=== PATIENT | female | born 1975 | race Caucasian/White ===

== ENCOUNTER 2024-05-23 12:08 | Observation (INO) | payer OTHER, SELFPAY ==
[2024-05-23] VITALS (12 sets, daily range): BP systolic 120–155; BP diastolic 72–107; PULSE 70–113; RESP 16; TEMP 36.3–36.8; O2SAT 96–100; BMI 34.7; BMI 35.5; BMI 34.6
--- NOTE | 2024-05-23 12:21 | CT_ITS ---
PROCEDURE: STROKE CTA HEAD AND NECK W/CON 05/23/2024 REASON FOR EXAM: NT Migraine headaches. TECHNIQUE: CTA imaging of the head and neck from the aortic arch to the skull vertex with out constrast and with intravenous contrast. Coronal and Sagittal reconstruction series were provided. 3D post processing with reformations, Maximum intensity projection (MIPs) Volume rendering and Shaded surface rendering was provided. CONTRAST: Isovue 370 VOLUME: 100 mL One or more dose reduction techniques were used (e.g., Automated exposure control, adjustment of the mA and/or kV according to patient size, use of iterative reconstruction technique). RADIATION DOSE SUMMARY: CTDlvol: 32 mGy DLP: 1624.83 mGycm COMPARISON: Comparison is made with prior CT scan of the brain done earlier in the day. FINDINGS: Aortic Arch: Normal size and branching pattern. No significant atherosclerotic plaque. Brachiocephalic and Subclavians: RIGHT Carotid: Right CCA: Unremarkable. Right ICA: Minimal calcific plaque at the origin of the right internal carotid artery. Maximum stenosis (NASCET): Less than 5 % Right ECA: Unremarkable. LEFT Carotid: Left CCA: Unremarkable. Left ICA: Unremarkable. Left ECA: Unremarkable. Vertebrals: Codominant. Arise from the subclavians. Both vertebrals form the basilar. RIGHT Vertebral: Unremarkable. LEFT Vertebral: Unremarkable. Anatomy: [place] anatomy is normal. Aneurysm or avm: No intracranial aneurysms or large vascular malformations are identified. Anterior cerebral arteries: Unremarkable: Middle cerebral arteries: Unremarkable. Basilar artery: Unremarkable. Posterior cerebral arteries: Unremarkable. Other major branches of the posterior circulation: Unremarkable. Major venous structures: Unremarkable. Other findings: Neck: No lymphadenopathy. Lungs: Bones: CT/STROKE CTA Head AND Neck W/Con IMPRESSION: Minimal plaque at the origin of the right internal carotid artery. Reading Location: [place] [id number]
--- NOTE | 2024-05-23 12:21 | CT_ITS ---
PROCEDURE: STROKE BRAIN/HEAD WITHOUT CONT 05/23/2024 REASON FOR EXAM: N/T Migraine headaches. TECHNIQUE: Head CT without intravenous contrast. Coronal and Sagittal reconstruction series were provided. One or more dose reduction techniques were used (e.g., Automated exposure control, adjustment of the mA and/or kV according to patient size, use of iterative reconstruction technique. RADIATION DOSE SUMMARY: CTDlvol: 5.7 mGy DLP: 5.7 mGycm COMPARISON: None FINDINGS: Brain: Normal CSF Spaces: Normal Sinuses/Mastoids: Clear at visualized levels Bones: Unremarkable CT/STROKE Brain/Head without Cont IMPRESSION: NORMAL NONCONTRAST HEAD CT. [facility]
--- NOTE | 2024-05-23 12:21 | EKG12_ITS ---
Test Reason : Blood Pressure : */* mmHG Vent. Rate : 77 BPM Atrial Rate : 77 BPM P-R Int : 134 ms QRS Dur : 100 ms QT Int : 372 ms P-R-T Axes : 58 60 36 degrees QTcB Int : 420 ms Normal sinus rhythm Normal ECG Confirmed by Ridge Daniel ([id number]), design editor ADALBERTO ULLOA ([id number]) on 05/26/2024 6:44:43 AM Referred By: Confirmed By: Ridge Daniel
--- NOTE | 2024-05-23 12:30 | RAD_ITS ---
PROCEDURE: CHEST PA AND LATERAL 05/23/2024 REASON FOR EXAM: STROKE TECHNIQUE: Frontal and lateral views of the chest. COMPARISON: None FINDINGS: Hardware: None Heart: The heart size is normal. Mediastinum: The mediastinal contour is stable. Lungs: The lungs are clear. Bones: Increased kyphosis. RAD/Chest PA and Lateral IMPRESSION: NO ACUTE FINDINGS. Reading Location: [facility]
--- NOTE | 2024-05-23 13:03 | EDS_ITS ---
HPI History of Present Illness Chief Complaint: Neuro S/Sx Detail of Chief Complaint: Strokelike symptoms with paresthesia, and difficulty finding words Informant: patient and spouse/S.O. Onset/Context/Timing Onset: Yesterday and Days Timing: Intermittent Quality and Location: Positive for Left Face Parasthesia, Left Arm Parasthesia (Left hand and left foot yesterday and today) and Expressive Aphasia; Negative for Right Facial Droop, Left Facial Droop, Right Face Paresthesia, Right Arm Parasthesia, Right Leg Parasthesia, Right Arm Weakness, Left Arm Weakness, Right Leg Weakness, Left Leg Weakness, Slurred Speech, Receptive Aphasia or Difficulty with Ambulation Onset: Trouble with speech 2 days ago. She states she had difficulty finding word Current Severity: Mild Maximum Severity: Moderate Worsened by: Nothing Relieved by: Not applicable Associated Symptoms Associated Symptoms: Positive for Headache (Headache x 2 weeks); Negative for Nausea, Vomiting or Chest Pain Narrative Narrative: Patient is a 49-year-old woman. She has history of idiopathic intracranial hypertension and migraine headaches. Patient discontinued her Atogpant because of loss of appetite and 15 pound weight loss. She is on Diamox for her idiopathic intracranial hypertension. She denies any visual symptoms. She states the other day she had troubles saying things even though she knew what it was she gave the example that she was telling her to give her a blanket because she was cold. Yesterday and today she had a seizure shape area of numbness left perioral area and numbness left side of her tongue. She also complained of numbness in her right hand and foot. Today onset was at 0900. She had a chronic headache. She has no other symptoms. She does not have hist ory of neurologic symptoms with her headaches. Patient reports her blood pressure was out of control. Her blood pressure was in the 140s yesterday and today. Prior similar symptoms: No Recent Illness/Hospitalization: No PFSH PFSH Home Medications ?Medication ?Instructions ?Recorded ?Last Taken ?Type omeprazole 40 mg capsule,delayed 40 mg PO TID PRN naus ea #90 caps 11/11/23 05/22/24 Rx release ondansetron 4 mg disintegrating 4 mg PO TID PRN nausea and 02/21/24 05/16/24 Rx tablet vomiting #30 tabs topiramate 50 mg tablet (Topamax) 50 mg PO DAILY #30 t abs 02/21/24 05/22/24 Rx ubrogepant 50 mg tablet (Ubrelvy) 50 mg PO DAILY PRN h eadache #16 03/09/24 Unknown Rx tabs atogepant 60 mg tablet (Qulipta) 60 mg PO DAILY #30 ta bs 04/03/24 Unknown Rx Held on 05/23/24. Instructions: MD Ordered acetazolamide 250 mg tablet 250 mg PO BID 05/23/24 History amlodipine 10 mg tablet 10 mg PO DAILY PRN blood pre ssure 05/23/24 05/23/24 History Allergy/AdvReac Type Severity Reaction Status Date / Time promethazine (From Phenergan) AdvReac Intermediate Other Verified 05/23/24 12:10 Social History (Updated 05/23/24 @ 13:[address] Rafita Burnett MD) household members: spouse Smoking Status: Never smoker ROS ROS ED Constitutional Constitutional ED: Denies chills, fever(s), subjective, sweats or weakness Eyes Eyes: Denies blurry vision, change in vision or diplopia ENT ENT ED: Denies ear pain or sore throat Cardiovascular Cardiovascular: Denies chest pain or palpitations Respiratory/Chest Respiratory/Chest: Denies cough, dyspnea or dyspnea on exertion Gastrointestinal Gastrointestinal: Denies abdominal pain, nausea or vomiting Musculoskeletal Musculoskeletal: Denies back pain or neck pain Integumentary Denies rash Neurologic Neurologic: Reports headache(s) and paresthesias; Denies weakness Hematologic/Lymphatic Hematologic/Lymphatic: Denies easy bleeding or easy bruising EXAM Physical Exam Const Vital Signs: 05/23/24 12:10 05/23/24 12:21 05/23/24 13:21 Temperature 98.3 F Temperature Source Oral Pulse Rate 113 H 103 H Respiratory Rate 16 16 Blood Pressure 155/103 H 142/107 H Blood Pressure Mean 120 118 Pulse Ox 99 97 96 Oxygen Delivery Method Room Air Room Air Room Air 05/23/24 13:25 05/23/24 13:30 Temperature Temperature Source Pulse Rate 91 72 Respiratory Rate 16 16 Blood Pressure 142/107 H 129/77 H Blood Pressure Mean 118 94 Pulse Ox 98 96 Oxygen Delivery Method Room Air Room Air Positive well nourished and well developed Constitutional Narrative: Blood pressure is elevated 155/103. Heart rate is 113. She appears in no distress. General Appearance ED: well developed HEENT Reports TM's clear and moist mucous membranes atraumatic Tympanic Membrane ED: Yes TM's clear Eyes EOMs intact bilaterally Eyes Narrative: There is no nystagmus. There is no visual field cut. General Eye ED: Negative for pale conjunctiva or scleral icterus Neck no lymphadenopathy, supple and no JVD Resp normal respiratory effort and clear to auscultation bilaterally Cardio no murmurs Rate: tachycardic Rhythm: regular rhythm Heart Sounds: S1 normal and S2 normal Back/Spine no CVA tenderness Extremity General Extremety ED: Negative for deformity or edema General Extremity: Negative for deformity or edema Neuro oriented x3, CN's II-XII intact bilaterally and No no sensory deficits noted Joey Coma Scale: document GCS findings Spontaneous Obeys Commands Oriented 15 Sensorium / Orientation: alert Motor Exam: strength 5/5 throughout Psych mental status grossly normal Skin no wounds General Skin Exam: Negative for jaundice Lesions: no lesions Rashes: no rashes MDM MDM MDM Narrative Medical decision making narrative: This may represent a complex migraine versus TIA due to microvascular disease. Patient's symptoms are minor and not a candidate for TNK or vascular intervention unless CTA reveals something. History & Record Review Discussion w/independent historian: Patient and Family Lab Data Attestation: I reviewed the patient's lab results. Lab results narrative: CBC is unremarkable. Labs: Laboratory Results - last 24 hr 05/23/24 13:28 WBC 7.4 RBC 5.03 Hgb 14.9 Hct 42.8 MCV 85.1 MCH 29.6 MCHC 34.8 RDW Std Deviation 38.6 RDW Coeff of Roma 12.6 Plt Count 238 MPV 9.5 Immature Gran % (Auto) 1.500 H Neut % (Auto) 65.9 Lymph % (Auto) 25.2 [place] % (Auto) 6.4 Eos % (Auto) 0.3 Baso % (Auto) 0.7 Absolute Neuts (auto) 4.9 Absolute Lymphs (auto) 1.86 Nucleated RBC % 0 PT Cancelled INR Cancelled APTT Cancelled Sodium 142 Potassium 3.7 Chloride 108 Carbon Dioxide 22.3 Anion Gap 11 BUN 14 Creatinine 0.92 Estim Creat Clear Calc 80.38 Est GFR (MDRD) Non-Af 75 BUN/Creatinine Ratio 14.7 Glucose 123 H Calcium 10.1 Radiography Chest X-Ray - ED: 1 View, Read by ED Physician, Normal, Heart, Lungs, Mediastinum, Bony Structures and No Acute Disease Diagnostic Testing: Clinical Impression(s) from Imaging Studies Brain CT 05/23/24 12:21 IMPRESSION: NORMAL NONCONTRAST HEAD CT. Reading Location: [facility] Chest X-Ray 05/23/24 12:30 IMPRESSION: NO ACUTE FINDINGS. Reading Location: [facility] CT revealed no acute findings. Will contact hospitalist for admission EKG Initial EKG: Attestation: I personally reviewed and interpreted this EKG as follows: Interpretation: Sinus Rhythm (Rate is 77. [place] interval is 134 ms. Cures duration is 100 ms. QT duration is 322 ms. Lindsay normal. EKG is normal.) Management Discussion w/another healthcare provider: Hospitalist (Dr. Torres was paged for admission for workup to determine if this is a CVA versus complex migraine versus other cause) and Radiologist (Informed of radiology read for unenhanced scan) Discharge Plan Dx/Rx/DC Orders Clinical Impression: Stroke-like symptoms, History of idiopathic intracranial hypertension, Headache, classical migraine, intractable, with status migrainosus, Elevated blood-pressure reading without diagnosis of hypertension, Sinus tachycardia seen on cardiac monitor technician Disposition Disposition: Acute Care Hospital [facility] NIHSS NIHSS 1a. Level of Consciousness: 0 - Alert; keenly responsive 1b. LOC Questions: 0 - Answers BOTH questions correctly 1c. LOC Commands: 0 - Performs BOTH tasks correctly 3. Visual: 0 - No visual loss 4. Facial Palsy: 0 - Normal symmetrical movements 5a. Left Arm: 0 - No drift; arm holds 90 (or 45) degrees for full 10 seconds 6a. Left Le - No drift; leg holds 30-degree position for full 5 seconds 6b. Right Le - No drift; leg holds 30-degree position for full 5 seconds 7. Limb Ataxia: 0 - Absent 8. Sensory: 1 - [id number]-[id number] sensory loss; 9. Best Language: 0 - No aphasia; normal 10. Dysarthria: 0 - Normal 11. Extinction and Inattention: 0 - No abnormality Total: 1
[2024-05-23] MEDS: 0.9% Normal Saline (1000mL) 1,000 ML 50 ML IV (13:37)
[2024-05-23 13:41] LABS: Absolute Lymphocyte Count 1.86 X10^3/uL (0.83-4.51); Absolute Neutrophil Count 4.9 X10^3/uL (2.0-7.7); Basophil# 0.05 X10^3/uL; Basophil% 0.7 % (0-1); Eosinophil# 0.02 X10^3/uL; Eosinophils% 0.3 % (0-5); Hematocrit 42.8 % (37-47); Hemoglobin 14.9 g/dL (12.0-15.0); Lymphocyte # 1.86 X10^3/ul (0.83-4.51); Lymphocyte % 25.2 % (19-41); Mean Corp Hgb Conc 34.8 g/dL (32-36); Mean Corpuscular Hgb 29.6 pg (27.0-32.0); Mean Corpuscular Volume 85.1 fL (81-99); Mean Platelet Vol. 9.5 fl (6.2-12.0); Monocyte# 0.47 X10^3/uL; Monocyte% 6.4 % (0-10); NRBC Flagged by Analyzer 0 % (0-5); Neutrophil # 4.87 X10^3/uL (2.7-7.7); Neutrophil % 65.9 % (47-70); Platelet Count 238 K/mm3 (150-450); RBC Distribution Width CV 12.6 % (11.6-14.6); RBC Distribution Width SD 38.6 fl (35.1-43.9); Red Blood Count 5.03 M/mm3 (4.2-5.4); White Blood Count 7.4 K/mm3 (4.4-11.0)
[2024-05-23 14:02] LABS: Anion Gap 11 (5-15); BUN 14 mg/dL (4-19); BUN/Creat Ratio 14.7 RATIO (10-20); Calcium,Total 10.1 mg/dL (7.6-11.0); Carbon Dioxide 22.3 mmol/L (21.0-32.0); Chloride 108 mmol/L (98-108); Creatinine, Serum 0.92 mg/dL (0.70-1.20); EST Glomerular Filtration Rate 75 (>60); Estimated Creatinine Clearance 80.38 ml/min (50-250); Glucose 123 mg/dL (70-99); Potassium 3.7 mmol/L (3.3-5.1); Sodium Level 142 mmol/L (133-145)
--- NOTE | 2024-05-23 14:52 | HP.PCM.HOS_ITS ---
HPI - General General Date of Admission: 05/23/24 Date of Service: 05/23/24 Chief Complaint: Headache, paresthesias. HPI Narrative The patient is a 49 y/o F w/ PMHx: Obesity, Idiopathic intracranial HTN/HTN, Diet controlled Diabetes mellitus type II, Chronic migraine headaches, GERD who presents to the [facility] ED on 05/23/24 with history of strokelike symptoms noted to be intermittent over the last 48 hours with left face paresthesias, left upper extremity paresthesias and the day prior noted to also be in the left hand and left foot as well as today in addition to expressive aphasia with also an episode with difficulty with speech 2 days prior even difficulty finding words which seem to of improved and then again she had recurrent symptoms as noted with persistent headache ongoing for the last 2 weeks reportedly discontinuing her atogpant secondary to decreased appetite and resulting weight loss of 15 pounds, compliant with her Diamox for her idiopathic intracranial hypertension but given recurrent symptoms again today onset at 9 AM and onset of neurological symptoms which she is never had previously with her headaches prompted eventual ED evaluation. In the ED upon evaluation she notes still a persistent headache that is nearly headband shape in the front of her head describing it as a squeezing constant 5-6 out of 10 in severity with no light or sound sensitivity with nausea but no emesis. She also notes that most of her symptoms have resolved and she is has no expressive aphasia and only very minimal paresthesias/tingling in her bilateral hand in a glove distribution as well as the left foot as if in a sock distribution in addition to a very mild region just on the vermilion border near around the left side of the mouth. 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 She has never had any headaches with neurological symptoms previously. Workup in the ED included T98.3, heart 113, BP 155/103, respiratory rate 16, 99% room air with most recent repeat vitals heart rate 72, BP 120/72, respiratory rate 16, 98% on room air, CBC with WBC 7.4, he 1 14.9, platelet 238 with increased immature granulocytes, pending coags upon request evaluation of patient, BMP with glucose 123, BUN/creatinine 14/0.92, GFR 75 with no comparison, CT of the brain with no acute intracranial findings, CTA head and neck with minimal plaque at the origin of the right ICA, chest x-ray with no acute findings, EKG with sinus rhythm with no acute evidence of ischemia. In the ED patient ministered maintenance IV fluids. [facility] Medical History HTN (hypertension) GERD (gastroesophageal reflux disease) Obesity Chronic migraine Benign intracranial hypertension Diabetes mellitus, type 2 Home Medications ?Medication ?Instructions ?Recorded ?Last Taken ?Type omeprazole 40 mg capsule,delayed 40 mg PO TID PRN naus ea #90 caps 11/11/23 05/22/24 Rx release ondansetron 4 mg disintegrating 4 mg PO TID PRN nausea and 02/21/24 05/16/24 Rx tablet vomiting #30 tabs topiramate 50 mg tablet (Topamax) 50 mg PO DAILY #30 t abs 02/21/24 05/22/24 Rx ubrogepant 50 mg tablet (Ubrelvy) 50 mg PO DAILY PRN h eadache #16 03/09/24 Unknown Rx tabs atogepant 60 mg tablet (Qulipta) 60 mg PO DAILY #30 ta bs 04/03/24 Unknown Rx Held on 05/23/24. Instructions: MD Ordered acetazolamide 250 mg tablet 250 mg PO BID 05/23/24 History amlodipine 10 mg tablet 10 mg PO DAILY PRN blood pre ssure 05/23/24 05/23/24 History Allergy/AdvReac Type Severity Reaction Status Date / Time promethazine (From Phenergan) AdvReac Intermediate Other Verified 05/23/24 12:10 Family History (Updated 05/23/24 @ 15:[address] Graciela Torres MD) Mother Crohn's disease Father CAD (coronary artery disease) s/p CABG Heart disease Hypertension Myocardial infarction Heart failure Surgical History History of arthroscopy of right knee History of bilateral breast reduction surgery History of cholecystectomy History of total abdominal hysterectomy and bilateral salpingo-oophorectomy Social History (Updated 05/23/24 @ 15:[address] Graciela Torres MD) household members: spouse Smoking Status: Never smoker alcohol intake: never substance use type: does not use ROS ROS Narrative Admission Review of Systems: CONSTITUTIONAL: No weight loss, fever, chills, weakness or fatigue. HEENT: + Headache, facial paresthesias. Eyes: No visual loss, blurred vision, double vision or yellow sclerae. Ears, Nose, Throat: No hearing loss, sneezing, congestion, runny nose or sore throat. SKIN: No rash or itching, lesions, wounds. CARDIOVASCULAR: No chest pain, chest pressure or chest discomfort, palpitations, edema, orthopnea, syncopal events. RESPIRATORY: No shortness of breath, cough or sputum, wheezing, hemoptysis. GASTROINTESTINAL: No anorexia, nausea, vomiting or diarrhea, abdominal pain, melena, BRBPR. GENITOURINARY: No dysuria, frequency, urgency or retention. NEUROLOGICAL: + Headache, facial paresthesias, hand as well as distal left foot paresthesias, expressive aphasia. Chronic migraines. No dizziness, syncope, paralysis, ataxia, focal weakness, change in bowel or bladder control, seizure. MUSCULOSKELETAL: + muscle, back pain, joint pain or stiffness. HEMATOLOGIC: No anemia, bleeding or bruising. LYMPHATICS: No enlarged nodes. No history of splenectomy. PSYCHIATRIC: No history of depression or anxiety. ENDOCRINOLOGIC: No reports of sweating, cold or heat intolerance. No polyuria or polydipsia. ALLERGIES: No history of asthma, hives, eczema or rhinitis. Vital Signs Vital Signs Vital Signs: 05/23/24 12:10 05/23/24 12:21 05/23/24 13:21 Temperature 98.3 F Temperature Source Oral Pulse Rate 113 H 103 H Respiratory Rate 16 16 Blood Pressure 155/103 H 142/107 H Blood Pressure Mean 120 118 Pulse Ox 99 97 96 Oxygen Delivery Method Room Air Room Air Room Air 05/23/24 13:25 05/23/24 13:30 05/23/24 14:33 Temperature Temperature Source Pulse Rate 91 72 Respiratory Rate 16 16 Blood Pressure 142/107 H 129/77 H 120/72 Blood Pressure Mean 118 94 88 Pulse Ox 98 96 98 Oxygen Delivery Method Room Air Room Air Weight Weight: 207 lb 0.225 oz Body Mass Index (BMI) 35.5 Physical Exam Narrative Physical Examination: General: Awake, alert, oriented x 3 and cooperative, seated upright in the ED bed in no apparent distress, notes improving. Skin: Normal color, normal turgor, no icterus, no cyanosis. HEENT: AT/NC, EOMI, PERRLA, MMM, still very residual left-sided paresthesias along the vermilion lip border only, no carotid bruits or JVD noted. Lungs: CTA bilaterally, moderate effort, mild decrease BL bases, no rales, ronchi or wheezing. Heart: Regular rate and rhythm; no gallop, rub audible. Abdomen: Soft, obese, NTTP, ND, mildly hyperactive BS, no appreciated HSM. Extremities: No cyanosis, clubbing, or edema. Neurological: Patient awake, alert, oriented as noted, cognitive function intact; pupils equally reactive to light and accommodation, cranial nerves grossly normal aside from very mild left-sided paresthesias along the vermilion border, moving all 4 extremities, very focal glove bilaterally and soft left foot paresthesias only, no focal deficits, strength preserved, finger-nose and [id number] appropriate, equivocal Babinski. Psychiatric: Affect appears fatigued otherwise normal, no acute evidence of depressive or anxiety feelings. Results Lab / Micro Data 05/23/24 13:28 05/23/24 13:28 Labs: Laboratory Results - last 24 hr 05/23/24 13:28: WBC 7.4, RBC 5.03, Hgb 14.9, Hct 42.8, MCV 85.1, MCH 29.6, MCHC 34.8, RDW Std Deviation 38.6, RDW Coeff of Roma 12.6, Plt Count 238, MPV 9.5, I mmature Gran % (Auto) 1.500 H, Neut % (Auto) 65.9, Lymph % (Auto) 25.2, [place] % (Auto) 6.4, Eos % (Auto) 0.3, Baso % (Auto) 0.7, Absolute Neuts (auto) 4.9, Absolute Lymphs (auto) 1.86, Nucleated RBC % 0, PT Cancelled, INR Cancelled, APTT Cancelled, Sodium 142, Potassium 3.7, Chloride 108, Carbon Dioxide 22.3, Anion Gap 11, BUN 14, Creatinine 0.92, Estim Creat Clear Calc 80.38, Est GFR (MDRD) Non-Af 75, BUN/Creatinine Ratio 14.7, Glucose 123 H, Calcium 10.1 Imaging Radiology Impression Brain CT 05/23/24 12:21 IMPRESSION: NORMAL NONCONTRAST HEAD CT. Reading Location: [facility] Head/Neck CTA 05/23/24 12:21 IMPRESSION: Minimal plaque at the origin of the right internal carotid artery. Reading Location: [facility] Chest X-Ray 05/23/24 12:30 IMPRESSION: NO ACUTE FINDINGS. Reading Location: [facility] Assessment & Plan Assessment/Plan (1) Stroke-like symptoms: PLAN: Plan The patient is a 49 y/o F w/ PMHx: Obesity, Idiopathic intracranial HTN/HTN, Diet controlled Diabetes mellitus type II, Chronic migraine headaches, GERD who presents to the [facility] ED on 05/23/24 with history of strokelike symptoms noted to be intermittent over the last 48 hours with left face paresthesias, left upper extremity paresthesias and the day prior noted to also be in the left hand and left foot as well as today in addition to expressive aphasia with also an episode with difficulty with speech 2 days prior even difficulty finding words which seem to of improved and then again she had recurrent symptoms as noted with persistent headache ongoing for the last 2 weeks reportedly discontinuing her atogpant secondary to decreased appetite and resulting weight loss of 15 pounds, compliant with her Diamox for her idiopathic intracranial hypertension but given recurrent symptoms again today onset at 9 AM and onset of neurological symptoms which she is never had previously with her headaches prompted eventual ED evaluation. #1. Paresthesias, persistent headache, expressive aphasia concerning for CVA versus TIA versus complex migraine with history of chronic migraines, more suspected: Will admit to PCU, will obtain MRI Brain with and without contrast given age just to assure there is no demyelinating issues, obtain ECHO, PT/OT/Speech/Nutrition evaluation per protocol. Will allow permissive HTN, maintain on asa in the interim pending further evaluation, may de-escalate if appropriate. Mag, TSH, FLP, HgbA1c requested. Maintain on fall and aspiration precautions. Neurology consultation requested. If MRI of the brain is negative and evaluation is more consistent with intractable migraine we will then initiate regimen for this pathway but must rule out stroke first. #2. Intracranial idiopathic hypertension/HTN: Will continue patient Diamox regimen, encourage continued follow-up outpatient and evaluation as previously arranged. Temporarily holding amlodipine with permissive hypertension as noted. #3. Diabetes mellitus type II, diet controlled: Previously had been on insulin but is been well-controlled, last hemoglobin A1c which she reports approximately 6 months prior 6.1%, not on any medications currently but diet controlled, continue ADA diet, accu checks w/ ISS. Hemoglobin A1c requested, nutrition consultation per protocol. #4. Obesity: Weight loss and lifestyle changes encouraged. #5. GERD: Will continue patient home omeprazole regimen. #6. DVT prophylaxis: Lovenox. #7. CODE status: Patient does not have healthcare power of litigation attorney associate or living will in place but her who is present would be her medical decision-maker if necessary she notes. Discussed CODE status at length including difference between FULL code, DNR-CCA and DNR-CC status. Following discussions about the differences in these status, requested Full Code status. Charges/Coding Visit Charges Inpatient E&M: 26965 Init Hosp L3
--- NOTE | 2024-05-23 16:52 | ECHOD_ITS ---
Reason For Study Reason For Study: TIA/CVA Procedure This was a 2D Doppler, Color Flow transthoracic echocardiogram. Exam performed portable in patient room. Left Ventricle Normal LV size. Left ventricular systolic function is normal. The left ventricular ejection fraction is 65 %. No regional wall motion abnormalities noted. Right Ventricle Normal RV size. Normal systolic function. Atria Normal left atrium. Normal right atrium. Bubble contrast study negative for right to left interatrial shunt. Mitral Valve Normal mitral valve. Tricuspid Valve Normal tricuspid valve. Aortic Valve Trisinus/trileaflet aortic valve. Pulmonic Valve Normal pulmonic valve. Great Vessels Normal aortic root. The pulmonary artery is normal size. Inferior vena cava collapse with respiration. Pericardium/Pleural No pericardial effusion. Medication Performed a rapid injection of agitated mix of 9 cc saline and 1cc air to assess for atrial septal defect. MMode/2D Measurements & Calculations LVIDd: 4.1 cm IVSd: 0.97 cm Ao root diam: 2.9 cm LVIDs: 2.7 cm LVPWd: 0.84 cm RVDd: 3.2 cm FS: 34.5 % LAV(MOD-bp): 32.0 ml LVAd ap4: 24.9 cm2 SV(MOD-sp4): 47.4 ml LAV(MOD-bp) Indexed: 16.2 ml/m2 LVLd ap4: 7.1 cm SI(MOD-sp4): 24.0 ml/m2 LAV(MOD-sp2): 32.8 ml EDV(MOD-sp4): 71.4 ml LAV(MOD-sp4): 27.5 ml EDV(sp4-el): 73.9 ml LVAs ap4: 12.7 cm2 LVLs ap4: 5.8 cm ESV(MOD-sp4): 24.1 ml ESV(sp4-el): 23.7 ml EF(MOD-sp4): 66.3 % EF(sp4-el): 68.0 % SV(sp4-el): 50.3 ml LA A4 area: 13.5 cm2 LA dimension(2D): 3.4 cm RA A4 area: 11.6 cm2 TAPSE: 1.9 cm Time Measurements MV dec time: 0.23 sec Doppler Measurements & Calculations MV E max nicholas: 85.3 cm/sec Lat Peak E' Nicholas: 14.2 cm/sec Med Peak E' Nicholas: 9.7 cm/sec MV A max nicholas: 66.9 cm/sec E/E' lat: 6.0 E/E' med: 8.8 MV E/A: 1.3 Ao V2 max: 155.7 cm/sec AI max nicholas: 312.5 cm/sec LV V1 max: 123.4 cm/sec Ao max P.7 mmHg AI max P.1 mmHg LV V1 max P.1 mmHg AI dec slope: 111.5 cm/sec2 AI P1/2t: 820.6 msec PA V2 max: 83.9 cm/sec TR max nicholas: 237.2 cm/sec TR max P.5 mmHg ECHO/Echo Complete Interpretation Summary Normal LV size. Left ventricular systolic function is normal. The left ventricular ejection fraction is 65 %. Bubble contrast study negative for right to left interatrial shunt. Structurally normal valves. Ordering Physician: Graciela Torres Referring Physician: SUKHDEEP ANDERSON Performed By: Paulina Campos RDCS
[2024-05-23] MEDS: Aspirin 325 MG Tablet PO (17:28)
[2024-05-23] MEDS: 0.9% Normal Saline (1000mL) 1,000 ML 100 ML IV (17:29)
[2024-05-23] MEDS: Topiramate 50 MG Tablet PO (20:14)
[2024-05-23] MEDS: AcetaZOLAMIDE 250 MG Tablet PO (21:41)
[2024-05-23] MEDS: Pantoprazole Sodium 40 MG Tablet PO (21:42)
[2024-05-23 22:04] LABS: Bedside Glucose 120 mg/dL (74-106)
[2024-05-24 00:45] VITALS: BP 120/68; PULSE 66; RESP 16; TEMP 36.6; O2SAT 98
[2024-05-24 04:07] VITALS: BMI 34.6
[2024-05-24 04:41] VITALS: BMI 35.2
[2024-05-24 04:45] VITALS: BP 125/65; PULSE 68; RESP 16; TEMP 36.8; O2SAT 99
[2024-05-24] MEDS: Acetaminophen 325 MG Tablet 650 MG PO (05:02)
[2024-05-24 07:25] LABS: Bedside Glucose 123 mg/dL (74-106)
[2024-05-24 07:38] VITALS: O2SAT 96
[2024-05-24 08:14] LABS: Absolute Lymphocyte Count 2.51 X10^3/uL (0.83-4.51); Absolute Neutrophil Count 2.6 X10^3/uL (2.0-7.7); Basophil# 0.06 X10^3/uL; Basophil% 1.1 % (0-1); Eosinophil# 0.04 X10^3/uL; Eosinophils% 0.7 % (0-5); Hematocrit 39.7 % (37-47); Hemoglobin 13.6 g/dL (12.0-15.0); Lymphocyte # 2.51 X10^3/ul (0.83-4.51); Lymphocyte % 44.1 % (19-41); Mean Corp Hgb Conc 34.3 g/dL (32-36); Mean Corpuscular Hgb 29.6 pg (27.0-32.0); Mean Corpuscular Volume 86.3 fL (81-99); Mean Platelet Vol. 9.6 fl (6.2-12.0); Monocyte# 0.47 X10^3/uL; Monocyte% 8.3 % (0-10); NRBC Flagged by Analyzer 0 % (0-5); Neutrophil % 45.6 % (47-70); Platelet Count 217 K/mm3 (150-450); RBC Distribution Width CV 12.8 % (11.6-14.6); White Blood Count 5.7 K/mm3 (4.4-11.0)
[2024-05-24 08:27] VITALS: BP 131/75; PULSE 66; RESP 18; TEMP 36.6; O2SAT 97
[2024-05-24] MEDS: Enoxaparin 40 MG/0.4 ML Syringe SC (08:37)
[2024-05-24] MEDS: Aspirin 81 MG TAB.CHEW PO (08:37)
[2024-05-24 08:55] LABS: Hemoglobin A1c 6.2 % (<=5.6)
--- NOTE | 2024-05-24 09:00 | MRI_ITS ---
PROCEDURE: BRAIN W/WO CONTRAST (MRIBRWW), 05/24/2024 REASON FOR EXAM: CVA, ATYPICAL NEUROLOGICAL SYMPTOMS COMPARISON: 05/23/2024 TECHNIQUE: Multisequence multiplanar MRI brain was performed with and without intravenous contrast. Contrast: 18 mL Clariscan. FINDINGS: Cerebrum: Unremarkable. Cerebellum: Unremarkable. Brainstem: Unremarkable. Ventricles/extra-axial spaces: Unremarkable. Major flow voids: Grossly unremarkable within limits of nondedicated technique, better evaluated on recent CTA. Paranasal sinuses: Unremarkable. Scalp/calvarium: Unremarkable. Orbits: Grossly unremarkable within limits of nondedicated technique. Other: No abnormal enhancement. MRI/Brain W/WO Contrast IMPRESSION: No specific evidence of an acute intracranial process. Reading Location: [id number]
[2024-05-24] MEDS: LORazepam 0.5 MG Tablet PO (09:33)
[2024-05-24 09:55] LABS: Cholesterol 167 mg/dL (<=200); High Density Lipoprotein 53 mg/dL; Low Density Lipoprotein Calc. 98 mg/dL; Triglycerides 79 mg/dL; Very Low Density Lipoprotein 16 mg/dL (5-40); cholesterol:hdl ratio screen 3.13
[2024-05-24 09:57] LABS: ALB/GLOB Ratio 1.8 RATIO (0.9-2.4); AST(SGOT) 16 U/L (<=31); Alanine Aminotransfer ALT/SGPT 12 U/L (<=34); Albumin, Serum 3.9 g/dL (3.5-5.0); Alkaline Phosphatase 47 U/L (35-104); Anion Gap 9 (5-15); BUN 11 mg/dL (4-19); BUN/Creat Ratio 13.5 RATIO (10-20); Calcium,Total 9.3 mg/dL (7.6-11.0); Carbon Dioxide 21.4 mmol/L (21.0-32.0); Chloride 111 mmol/L (98-108); Creatinine, Serum 0.83 mg/dL (0.70-1.20); EST Glomerular Filtration Rate 86 (>60); Estimated Creatinine Clearance 88.59 ml/min (50-250); Globulin 2.2 g/dL (2.2-4.2); Glucose 122 mg/dL (70-99); Potassium 3.7 mmol/L (3.3-5.1); Protein, Total 6.1 g/dL (5.9-8.4); Sodium Level 142 mmol/L (133-145); Total Bilirubin 0.66 mg/dL (0.00-1.30)
[2024-05-24 12:01] LABS: Bedside Glucose 155 mg/dL (74-106)
--- NOTE | 2024-05-24 14:29 | PCM.DC ---
Discharge Instructions Diet Discharge Diet: Low fat / Low cholesterol DC O2, CPAP, BIPAP needs Home O2 Discharge instructions: No Dressing / Incision Discharge Activity: Return to Normal Activity Weight Bearing Status: Weight bearing as tolerated Dressing / Incision Call your doctor if you observe: Fever of 101 or Higher, Shortness of breath, Dizziness, Swelling in the ankles and Chest pain Follow Up Care Test Results: Test results from this visit will be discussed in further detail at your follow-up appointment, if applicable. Discharge Plan Admission Admit Date/Time: 05/23/24 15:03 Primary Reason for Your Visit: stroke like symptoms Attending Provider: Milla Maradiaga Primary Care Provider: Ruth Bedoya NP Consulting Providers: Patrick Rey; Annalise Baker; Bella Doty; Darling Ayala; Johanny Rivera; Gordon Rosenberg; Deborah Bates; Neville Rey; Brant Singh; Manuel Townsend; Gisell Jade; Bebeto Shelby; Regina Henry; Samina Jackson; William Roberts; Moses Mansfield; Tonia Ayoub; Buzz Bernal; Zofia Ruiz; Leyla Barone; Graciela Torres Instructions Patient Instructions: ED TIA: Transient Ischemic Attack Additional Instructions / Restrictions: keep a home BP chart and follow up with her PCP for BP meds to be adjusted as needed. Discharge Orders/Prescriptions Prescriptions: Continued topiramate [Topamax] 50 mg tablet 50 mg PO DAILY Qty: 30 4RF ondansetron 4 mg tablet,disintegrating 4 mg PO TID PRN (Reason: nausea and vomiting) Qty: 30 3RF Ubrelvy 50 mg tablet 50 mg PO DAILY PRN (Reason: headache) Qty: 16 5RF Qulipta 60 mg tablet 60 mg PO DAILY Qty: 30 5RF omeprazole 40 mg capsule,delayed release(DR/EC) 40 mg PO TID PRN (Reason: nausea) Qty: 90 4RF Patient Comments: PT TAKES THIS ROUTINELY. amlodipine 10 mg tablet 10 mg PO DAILY PRN (Reason: blood pressure) Patient Comments: PT JUST TAKES THIS NEEDED. acetazolamide 250 mg tablet 250 mg PO BID Referrals / Follow Up: Ruth Bedoya FITNESS DIRECTOR, FITNESS DIRECTOR-C [Primary Care Provider] - Within 1 Week Disposition Disposition (needs filled in before D/C Order can be placed): Home, Self Care
--- NOTE | 2024-05-24 14:31 | PCM.DC.SUM ---
Providers Date of Admission: 05/23/24 Date of Discharge: 05/24/24 Primary Care Physician: DARRON Christensen Consultations 05/23/24 16:52 Consult: Tele-Neurology Routine Consulting Provider: [facility] Reason for Consult: Acute Ischemic Stroke/TIA EMERGENT Consult: No MD Notified: Yes Date Notified: 05/23/24 Time Notified: 17:57 Method of Notification: Answering Service Nursing Unit Staff Notify [facility] of Tele-Neurology Consult: Yes Reason For Visit: TIA/CVA VERSUS COMPLEX MIGRAINE Diagnosis Discharge Diagnosis (1) Stroke-like symptoms: Status: Acute Code(s): R29.90 - Unspecified symptoms and signs involving the nervous system Medications at Discharge Home Medications omeprazole 40 mg capsule,delayed release 40 mg PO TID PRN nausea #90 caps 11/11/23 ondansetron 4 mg disintegrating tablet 4 mg PO TID PRN nausea and vomiting #30 tabs 02/21/24 topiramate 50 mg tablet (Topamax) 50 mg PO DAILY seizures #30 tabs 02/21/24 ubrogepant 50 mg tablet (Ubrelvy) 50 mg PO DAILY PRN headache #16 tabs 03/09/24 atogepant 60 mg tablet (Qulipta) 60 mg PO DAILY #30 tabs 04/03/24 acetazolamide 250 mg tablet 250 mg PO BID blood pressure 05/23/24 amlodipine 10 mg tablet 10 mg PO DAILY PRN blood pressure 05/23/24 Hospital Course Operations None Procedures 2-D Echocardiogram Summary of Care Provided Minutes Spent on Discharge: 45 Hospital Course: Patient is a 49-year-old female with a past medical history as outlined who was admitted to the ED on 05/23/2024 with a complaint of strokelike symptoms that been going on for about 48 hours. She had left-sided facial paresthesias as well as paresthesias in her left upper extremity. She also had a brief moment of expressive aphasia about 2 days prior to admission. She had also been having a persistent headache which had been going on for about 2 weeks after discontinuing her migraine medication on account of decreased appetite. She had a history of idiopathic intracranial hypertension and has been compliant with her Diamox. On arrival in the ED her symptoms had largely resolved. CT of the brain showed no acute intracranial pathology. CT of the head and neck showed minimal plaque at the origin of the right ICA with chest x-ray showing no acute cardiopulmonary findings. EKG also showed no acute ST changes. She was admitted to be managed for strokelike symptoms to rule out a stroke. She had MRI of the brain which showed no evidence of a stroke. Patient felt well and was reviewed by neurology. Neurology recommended that she could be discharged home and for her blood pressure to be better controlled. Patient was counseled to keep a BP log at home and follow-up with the PCP for adjustment of her blood pressure medications as needed. She was discharged on 05/24/2024 and is continued on her p.o. amlodipine. She is also to continue on her topiramate for her migraines and acetazolamide for her idiopathic intracranial hypertension. She is to follow-up with her primary care doctor within 1 week. Patient seen and examined prior to discharge. She had no active complaints. Review of systems otherwise negative. Labs and vitals reviewed. Home medication reviewed and reconciled. Physical Exam Const alert, oriented x3 and no apparent distress General Appearance: cooperative, comfortable and well kempt Orientation / Consciousness: awake Exam Limitations: no limitations HEENT normocephalic, head/scalp atraumatic, hearing grossly normal bilaterally, moist oral mucous membranes and oropharynx normal Mouth: oral and palatal mucosa normal Eyes PERRL, EOMs intact bilaterally and conjunctivae normal Neck no lymphadenopathy and supple Resp normal respiratory effort, no retractions, no use of accessory muscles and clear to auscultation bilaterally Cardio regular rate, regular rhythm, S1 normal heart sound, S2 normal heart sound and no murmurs GI normal to inspection, nondistended, normoactive bowel sounds, soft to palpation, non-tender and non-distended Extremity normal to inspection, full ROM and no clubbing, cyanosis or edema Skin no rashes or lesions noted Neuro oriented x3, CN's II-XII intact bilaterally, moves all extremities and no focal motor deficits Sensorium / Orientation: awake and alert Motor Exam: strength 5/5 throughout Psych affect normal Weight / BMI Weight Weight: 204 lb 12.951 oz Body Mass Index (BMI) 35.2 ABG / Lab / Microbiology Data 05/24/24 07:15 05/24/24 07:15 Laboratory: Laboratory Results - last 24 hr 05/23/24 13:28: PT Cancelled, INR Cancelled, APTT Cancelled 05/23/24 13:33: Magnesium 2.0 05/23/24 21:45: POC Glucose 120 H 05/24/24 07:06: POC Glucose 123 H 05/24/24 07:15: WBC 5.7, RBC 4.60, Hgb 13.6, Hct 39.7, MCV 86.3, MCH 29.6, MCHC 34.3, RDW Std Deviation 40.0, RDW Coeff of Roma 12.8, Plt Count 217, MPV 9.6, Immature Gran % (Auto) 0.200, Neut % (Auto) 45.6 L, Lymph % (Auto) 44.1 H, [place] % (Auto) 8.3, Eos % (Auto) 0.7, Baso % (Auto) 1.1 H, Absolute Neuts (auto) 2.6, Absolute Lymphs (auto) 2.51, Nucleated RBC % 0, Sodium 142, Potassium 3.7, Chloride 111 H, Carbon Dioxide 21.4, Anion Gap 9, BUN 11, Creatinine 0.83, Estim Creat Clear Calc 88.59, Est GFR (MDRD) Non-Af 86, BUN/Creatinine Ratio 13.5, Glucose 122 H, Hemoglobin A1c 6.2 H, Calcium 9.3, Total Bilirubin 0.66, AST 16, ALT 12, Alkaline Phosphatase 47, Total Protein 6.1, Albumin 3.9, Globulin 2.2, Albumin/Globulin Ratio 1.8, Triglycerides 79, Cholesterol 167, LDL Cholesterol, Calc 98, VLDL Cholesterol 16, HDL Cholesterol 53, Cholesterol/HDL Ratio 3.13, TSH 1.550 05/24/24 11:42: POC Glucose 155 H Radiography Diagnostic Testing: Radiology Impression Brain MRI 05/24/24 09:00 IMPRESSION: No specific evidence of an acute intracranial process. Reading Location: [id number] D/C Instructions Discharge Diet: Low fat / Low cholesterol Discharge Activity: Return to Normal Activity Weight Bearing Status: Weight bearing as tolerated Call your doctor if you observe: Fever of 101 or Higher, Shortness of breath, Dizziness, Swelling in the ankles and Chest pain DC O2, CPAP, BIPAP Needs Home O2 Discharge instructions: No DC home with Oxygen: No Meaningful Use Info Meaningful Use Meaningful Use Diagnoses (Choose all that apply): None applicable Ischemic Stroke Statin Dosing Therapy Reference: STATIN DOSE THERAPY REFERENCE: * Patients > 75 years receive moderate or high dose statin therapy. * Patients 75 years or YOUNGER should receive HIGH intensity statin dose unless contraindicated. You will be required to document reason for non-treatment if statin daily dose does not meet guidelines. HIGH DOSE STATIN THERAPY DAILY Atorvastatin > than or = to 40 mg Rosuvastatin > than or = to 20 mg Amlodipine + Atorvastatin > than or = to 2.5/40 mg Ezetimibe + Simvastatin 10/80 mg Simvastatin 80mg Discharge Plan Admission Admit Date/Time: 05/23/24 15:03 Primary Reason for Your Visit: stroke like symptoms Attending Provider: Milla Maradiaga Primary Care Provider: Ruth Bedoya MECHANICAL ARTIST Consulting Providers: Patrick Rey; Annalise Baker; Bella Doty; Darling Ayala; Johanny Rivera; Gordon Rosenberg; Deborah Bates; Neville Rey; Brant Singh; Manuel Townsend; Gisell Jade; Bebeto Shelby; Regina Henry; Samina Jackson; William Roberts Elias; Moses Mansfield; Tonia Ayoub; Buzz Bernal; Zofia Ruiz; Leyla Barone; Graceila Torres Instructions Patient Instructions: ED TIA: Transient Ischemic Attack Additional Instructions / Restrictions: keep a home BP chart and follow up with her PCP for BP meds to be adjusted as needed. Discharge Orders/Prescriptions Prescriptions: Continued topiramate [Topamax] 50 mg tablet 50 mg PO DAILY Qty: 30 4RF ondansetron 4 mg tablet,disintegrating 4 mg PO TID PRN (Reason: nausea and vomiting) Qty: 30 3RF Ubrelvy 50 mg tablet 50 mg PO DAILY PRN (Reason: headache) Qty: 16 5RF Qulipta 60 mg tablet 60 mg PO DAILY Qty: 30 5RF omeprazole 40 mg capsule,delayed release(DR/EC) 40 mg PO TID PRN (Reason: nausea) Qty: 90 4RF Patient Comments: PT TAKES THIS ROUTINELY. amlodipine 10 mg tablet 10 mg PO DAILY PRN (Reason: blood pressure) Patient Comments: PT JUST TAKES THIS NEEDED. acetazolamide 250 mg tablet 250 mg PO BID Referrals / Follow Up: Ruth Bedoya MECHANICAL ARTIST, MECHANICAL ARTIST-C [Primary Care Provider] - Within 1 Week Disposition Disposition (needs filled in before D/C Order can be placed): Home, Self Care Charges/Coding Visit Charges Inpatient E&M: 81142 Disch Hosp >30min
--- NOTE | 2024-05-24 14:47 | PHA.DC.MR.R ---
Pharmacy [facility] Reconciliation Pharmacy Service has performed discharge medication reconciliation for this patient. The patient's discharge medication list was reviewed for discrepancies and discrepancies were resolved. Medications at Discharge Home Medications omeprazole 40 mg capsule,delayed release 40 mg PO TID PRN nausea #90 caps 11/11/23 ondansetron 4 mg disintegrating tablet 4 mg PO TID PRN nausea and vomiting #30 tabs 02/21/24 topiramate 50 mg tablet (Topamax) 50 mg PO DAILY #30 tabs 02/21/24 ubrogepant 50 mg tablet (Ubrelvy) 50 mg PO DAILY PRN headache #16 tabs 03/09/24 atogepant 60 mg tablet (Qulipta) 60 mg PO DAILY #30 tabs 04/03/24 acetazolamide 250 mg tablet 250 mg PO BID 05/23/24 amlodipine 10 mg tablet 10 mg PO DAILY PRN blood pressure 05/23/24
[2024-05-24] MEDS: AcetaZOLAMIDE 250 MG Tablet PO (14:54)
[2024-05-24 14:55] VITALS: BP 125/79; PULSE 82; RESP 18; TEMP 36.6; O2SAT 97
--- NOTE | 2024-05-24 15:26 | CASEMGMT ---
Patient has order for discharge. RN CM in to discuss needs at discharge. Patient denies needs or help at discharge. Patient had no further questions or concerns.
--- NOTE | 2024-05-24 23:52 | CON.PCM.NE_ITS ---
Assessment and Plan: Stroke Assessment/Plan RAMA MAS is a 49 F with a history of ? IIH( was undiagnosed at [facility]) who presents for evaluation of paraesthesias. Neurological examination shows NIH 0. Neuroimaging shows MRI with no acute infarct. Her BP in ED was elevated. This is likely secondary to elevated BP. She will follow up with her PCP and her outpatient neurologist for [facility] managent. No further stroke workup at this time. HPI Consult Data Date of Consult: 05/24/24 HPI Narrative Reason for Consultation: stroke like sx HPI Narrative: RAMA MAS, is a 49 F who presents with paraesthesias. [facility] Medical History HTN (hypertension) GERD (gastroesophageal reflux disease) Obesity Chronic migraine Benign intracranial hypertension Diabetes mellitus, type 2 Home Medications ?Medication ?Instructions ?Recorded ?Last Taken ?Type omeprazole 40 mg capsule,delayed 40 mg PO TID PRN naus ea #90 caps 11/11/23 05/22/24 Rx release ondansetron 4 mg disintegrating 4 mg PO TID PRN nausea and 02/21/24 05/16/24 Rx tablet vomiting #30 tabs topiramate 50 mg tablet (Topamax) 50 mg PO DAILY seizu res #30 tabs 02/21/24 05/22/24 Rx ubrogepant 50 mg tablet (Ubrelvy) 50 mg PO DAILY PRN h eadache #16 03/09/24 Unknown Rx tabs atogepant 60 mg tablet (Qulipta) 60 mg PO DAILY #30 ta bs 04/03/24 Unknown Rx acetazolamide 250 mg tablet 250 mg PO BID blood pressu re 05/23/24 05/22/24 History amlodipine 10 mg tablet 10 mg PO DAILY PRN blood pre ssure 05/23/24 05/23/24 History Allergy/AdvReac Type Severity Reaction Status Date / Time promethazine (From Phenergan) AdvReac Intermediate Other Verified 05/23/24 12:10 Family History Mother Crohn's disease Father CAD (coronary artery disease) s/p CABG Heart disease Hypertension Myocardial infarction Heart failure Surgical History History of arthroscopy of right knee History of bilateral breast reduction surgery History of cholecystectomy History of total abdominal hysterectomy and bilateral salpingo-oophorectomy Social History household members: spouse Smoking Status: Never smoker alcohol intake: never substance use type: does not use Vital Signs Vital Signs Vital Signs: 05/24/24 00:45 05/24/24 04:45 05/24/24 07:38 Temperature 97.8 F 98.3 F Temperature Source Temporal Temporal Pulse Rate 66 68 Pulse Strength Respiratory Rate 16 16 Respiratory Effort Respiratory Depth Respiratory Pattern Blood Pressure 120/68 125/65 H Blood Pressure Mean 85 85 Blood Pressure Source Monitor Monitor Blood Pressure Position Semi-Fowlers Semi-Fowlers Blood Pressure Location Right Arm Right Arm Pulse Ox 98 99 96 Oxygen Delivery Method Room Air Room Air Room Air 05/24/24 08:26 05/24/24 08:27 05/24/24 08:27 Temperature 97.9 F Temperature Source Temporal Pulse Rate 66 Pulse Strength Normal (2+) Respiratory Rate 18 Respiratory Effort Normal Non-Labored Respiratory Depth Normal Respiratory Pattern Normal Blood Pressure 131/75 H Blood Pressure Mean 93 Blood Pressure Source Monitor Blood Pressure Position Semi-Fowlers Blood Pressure Location Right Arm Pulse Ox 97 Oxygen Delivery Method Room Air Room Air 05/24/24 14:55 Temperature 97.9 F Temperature Source Temporal Pulse Rate 82 Pulse Strength Respiratory Rate 18 Respiratory Effort Respiratory Depth Respiratory Pattern Blood Pressure 125/79 H Blood Pressure Mean 94 Blood Pressure Source Monitor Blood Pressure Position Semi-Fowlers Blood Pressure Location Right Arm Pulse Ox 97 Oxygen Delivery Method Room Air Weight Weight: 92.9 kg Body Mass Index (BMI) 35.2 EEG Results Procedure Details EEG Procedure Details: RAMA MAS is a 49 year old F with a past medical history of , who presents for evaluation of Electroencephalogram on DATE at TIME Lab / Micro Data 05/24/24 07:15 05/24/24 07:15 Labs: Laboratory Results - last 24 hr 05/24/24 07:06: POC Glucose 123 H 05/24/24 07:15: WBC 5.7, RBC 4.60, Hgb 13.6, Hct 39.7, MCV 86.3, MCH 29.6, MCHC 34.3, RDW Std Deviation 40.0, RDW Coeff of Roma 12.8, Plt Count 217, MPV 9.6, Immature Gran % (Auto) 0.200, Neut % (Auto) 45.6 L, Lymph % (Auto) 44.1 H, [place] % (Auto) 8.3, Eos % (Auto) 0.7, Baso % (Auto) 1.1 H, Absolute Neuts (auto) 2.6, Absolute Lymphs (auto) 2.51, Nucleated RBC % 0, Sodium 142, Potassium 3.7, C hloride 111 H, Carbon Dioxide 21.4, Anion Gap 9, BUN 11, Creatinine 0.83, Estim Creat Clear Calc 88.59, Est GFR (MDRD) Non-Af 86, BUN/Creatinine Ratio 13.5, G lucose 122 H, Hemoglobin A1c 6.2 H, Calcium 9.3, Total Bilirubin 0.66, AST 16, ALT 12, Alkaline Phosphatase 47, Total Protein 6.1, Albumin 3.9, Globulin 2.2, Albumin/Globulin Ratio 1.8, Triglycerides 79, Cholesterol 167, LDL Cholesterol, Calc 98, VLDL Cholesterol 16, HDL Cholesterol 53, Cholesterol/HDL Ratio 3.13, TSH 1.550 05/24/24 11:42: POC Glucose 155 H Imaging Radiology Impression Echocardiogram 05/23/24 16:52 Interpretation Summary Normal LV size. Left ventricular systolic function is normal. The left ventricular ejection fraction is 65 %. Bubble contrast study negative for right to left interatrial shunt. Structurally normal valves. Ordering Physician: Graciela Torres Referring Physician: SUKHDEEP ANDERSON Performed By: Paulina Campos RDCS Brain MRI 05/24/24 09:00 IMPRESSION: No specific evidence of an acute intracranial process. Reading Location: [id number] NIHSS NIHSS Nursing Documentation NIHSS Nursing Documentation: NIHSS: Ischemic Stroke/TIA Start: 05/23/24 16:52 Text: For PCU Patients: NIH and Neuro Check every 4 Status: Complete hours, PRN and with change in RN caregiver. Freq: Q4H Protocol: Activity Type Activity Date Activity User E-sign Co-sign Detail Recorded Client Recorded Date Recorded By Document 05/24/24 08:27 KS desktop 05/24/24 08:27 KS 05/24/24 08:27 NIH Stroke Scale [NIHSS] A score of 0 is normal or asymptomatic . Total possible score is 42. Inpatient: RN or Physician to activate a stroke alert for onset of new stroke symptoms or with NIHSS increase >/= 3 points. Following change in neurological status, NIHSS will be performed per physician order or more frequently PRN. -1a. Level of Consciousness 0 - Alert; keenly responsive -1b. LOC Questions 0 - Answers BOTH questions correctly -1c. LOC Commands 0 - Performs BOTH tasks correctly -2. Best Gaze 1 - Normal -3. Visual 0 - No visual loss -4. Facial Palsy 0 - Normal symmetrical movements -5a. Left Arm 0 - No drift; arm holds 90 ( or 45) degrees for full 10 seconds -5b. Right Arm 0 - No drift; arm holds 90 ( or 45) degrees for full 10 seconds -6a. Left Leg 0 - No drift; leg holds 30- degree position for full 5 seconds -6b. Right Leg 0 - No drift; leg holds 30- degree position for full 5 seconds -7. Limb Ataxia 0 - Absent -8. Sensory 1 - Mild-to- moderate sensory loss; -9. Best Language 0 - No aphasia; normal -10. Dysarthria 0 - Normal -11. Extinction and Inattention 0 - No abnormality -Total 1 Query Text:A score of 0 is normal or asymptomatic. Total possible score is 42 . ED: Notify Physician for NIHSS increase by > / = 3 points. Inpatient: RN or Physician to activate a stroke alert for NIHSS increase of > / = 3 points. Coma Scale [Assess] -Eye Opening Spontaneous -Motor Obeys Commands -Verbal Oriented [Total] -Coma Scale Total 15
== END 2024-05-24 16:43 | disposition home or self-care (01) ==
LOC: ED 14:35 → PCU 16:04
PROVIDERS: Admitting Provider Family Medicine; Emergency Provider Emergency Medicine; PCP Registered Nurse; Visit Provider Student in an Organized Health Care Education/Training Program
DX: R20.2 Paresthesia of skin (principal); E11.9 Type 2 diabetes mellitus without complications; R47.01 Aphasia; G43.E11 Chronic migraine with aura, intractable, with status migrainosus; G93.2 Benign intracranial hypertension; I10 Essential (primary) hypertension; R00.0 Tachycardia, unspecified; E66.9 Obesity, unspecified; Z68.35 Body mass index [BMI] 35.0-35.9, adult; K21.9 Gastro-esophageal reflux disease without esophagitis; Z79.899 Other long term (current) drug therapy
CPT/HCPCS: 36415; 70450; 70496; 70498; 70553; 71046; 80048; 80053; 80061; 82962; 83036; 83735; 84443; 85025; 85610; 93005; 93306; 94668; 94762; 96360; 96361; 96372; 97802; 99221; 99285; A9575; Q9967; A4216; G0378